=== PATIENT | male | born 1950 | race American Indian/Alaskan Native ===

== ENCOUNTER 2017-11-13 13:11 | Emergency (ER) | payer SELFPAY ==
[2017-11-13 13:52] VITALS: BP 162/87
[2017-11-13] MEDS ORDERED: ZOFRAN ODT PO ONE (16:07)
[2017-11-13] MEDS ORDERED: TORADOL IM ONE (16:07)
[2017-11-13 16:11] LABS: Alanine Aminotransferase 15 units/L (7-56); BUN/Creatinine Ratio 14; Blood Urea Nitrogen 10 mg/dL (9-20); Hemolysis Index 21; Lipase 26 units/L (13-60)
[2017-11-13 16:17] LABS: Hematocrit 46.7 % (35.5-45.6); Hemoglobin 15.6 gm/dl (11.8-15.2); Mean Corpuscular HGB Conc 33 % (32-34); Mean Corpuscular Hemoglobin 30 pg (28-32); Mean Corpuscular Volume 89 fl (84-94); Platelet Count 266 K/mm3 (140-440); Red Blood Count 5.26 M/mm3 (3.65-5.03); Red Cell Distribution Width 16.3 % (13.2-15.2)
--- NOTE | 2017-11-13 16:17 | Emergency Department Report ---
Chief Complaint: Abdominal Pain Stated Complaint: ABDOMINAL PAIN Time Seen by Provider: 11/13/17 15:18 - HPI History of Present Illness: The patient is a 67-year-old male who presents for evaluation of abdominal pain. The patient reports abdominal pain since 9 AM, 10/10 in severity, concentrated to the upper abdomen, sharp in quality, exacerbated with vomiting. The patient denies trauma to the abdomen, fever, chills, night sweats, diarrhea , blood in the stool, dark tarry stool, dysuria, hematuria, flank pain, genital discharge, inability to pass flatus. - Exam Vital Signs: Vital Signs 11/13/17 13:49 Temperature 98.3 F Pulse Rate 68 Respiratory 17 Rate Blood Pressure 162/87 O2 Sat by Pulse 100 Oximetry MSE screening note: Focused history and physical exam performed. Due to findings the following was ordered: ED Medical Decision Making - Lab Data Result diagrams: 11/13/17 15:35 11/13/17 15:35 ED Disposition for MSE Clinical Impression: Abdominal pain, Nausea Disposition: DC-01 TO HOME OR SELFCARE Condition: Stable Instructions: Ondansetron (By mouth), Abdominal Pain (ED) Additional Instructions: Follow-up with a primary care doctor in 3-5 days or if symptoms worsen and continue return to emergency room as soon as possible. Prescriptions: Ibuprofen [Motrin] 600 mg PO Q8H PRN #30 tablet PRN Reason: Pain Ondansetron [Zofran TAB] 4 mg PO Q8HR PRN #20 tablet PRN Reason: Nausea Referrals: [facility] [Outside] - 3-5 Days [facility] [Outside] - 3-5 Days PRIMARY MD ANISHA [Primary Care Provider] - 3-5 Days TRISH ANDERSEN MD [Staff Physician] - 3-5 Days Forms: Work/School Release Form(ED)
--- NOTE | 2017-11-13 16:49 | Emergency Department Report ---
ED Abdominal Pain HPI - General Chief Complaint: Abdominal Pain Stated Complaint: ABDOMINAL PAIN Time Seen by Provider: 11/13/17 15:18 Source: patient, EMS Mode of arrival: Wheelchair Limitations: Physical Limitation - History of Present Illness Initial Comments: This is a 67-year-old male nontoxic, well nourished in appearance, no acute signs of distress presents to the ED with c/o of abdominal pain intermittent x3 months. Patient stated he was seen in [place] and had testing done and CT scans done. Patient denies knowing the results. Patient stated he had an incisional hernia repair done and now has this pain intermittent. Patient also stated has nausea with no vomiting. Patient describes abdominal pain as cramping diffusely and aching with level of 8/10. Patient denies any radiation of pain. Patient denies any vomiting, chest pain, shortness of breathe, fever, chills, headache. back pain, stiff neck, numbness or tingling. Patient denies any allergies. PMH includes GERD and HTN. MD Complaint: abdominal pain -: month(s) (3) Location: diffuse Radiation: none Migration to: no migration Severity: mild Severity scale (0 -10): 8 Quality: cramping, aching Consistency: constant Improves With: nothing Worsens With: nothing Associated Symptoms: nausea. denies: vomiting, diarrhea, fever, chills, constipation, dysuria, hematemesis, hematochezia, melena, hematuria, anorexia, syncope - Related Data Previous Rx's Medication Instructions Recorded Last Taken Type Ibuprofen [Motrin] 600 mg PO Q8H PRN #30 tablet 11/13/17 Unknown Rx Ondansetron [Zofran TAB] 4 mg PO Q8HR PRN #20 tablet 11/13/17 Unknown Rx Allergies Allergy/AdvReac Type Severity Reaction Status Date / Time No Known Allergies Allergy Unverified 11/13/17 13:49 ED Review of Systems ROS: Stated complaint: ABDOMINAL PAIN Other details as noted in HPI Constitutional: denies: chills, fever Eyes: denies: eye pain, eye discharge, vision change ENT: denies: ear pain, throat pain Respiratory: denies: cough, shortness of breath, wheezing Cardiovascular: denies: chest pain, palpitations Endocrine: no symptoms reported Gastrointestinal: abdominal pain, nausea. denies: vomiting, diarrhea Genitourinary: denies: urgency, dysuria Musculoskeletal: denies: back pain, joint swelling, arthralgia Skin: denies: rash, lesions Neurological: denies: headache, weakness, paresthesias Psychiatric: denies: anxiety, depression Hematological/Lymphatic: denies: easy bleeding, easy bruising ED Past Medical Hx - Past Medical History Hx Hypertension: Yes Hx GERD: Yes - Surgical History Additional Surgical History: HERNIA REPAIR - Social History Smoking Status: Never Smoker Substance Use Type: Marijuana - Medications Home Medications: Home Medications Medication Instructions Recorded Confirmed Last Taken Type Ibuprofen [Motrin] 600 mg PO Q8H PRN #30 tablet 11/13/17 Unknown Rx Ondansetron [Zofran TAB] 4 mg PO Q8HR PRN #20 tablet 11/13/17 Unknown Rx ED Physical Exam - General Limitations: Physical Limitation General appearance: alert, in no apparent distress - Head Head exam: Present: atraumatic, normocephalic - Eye Eye exam: Present: normal appearance Pupils: Present: normal accommodation - ENT ENT exam: Present: normal exam, mucous membranes moist - Neck Neck exam: Present: normal inspection, full ROM. Absent: tenderness, meningismus - Respiratory Respiratory exam: Present: normal lung sounds bilaterally. Absent: respiratory distress, wheezes, rales, rhonchi, stridor, chest wall tenderness, accessory muscle use, decreased breath sounds, prolonged expiratory - Cardiovascular Cardiovascular Exam: Present: regular rate, normal rhythm, normal heart sounds. Absent: bradycardia, tachycardia, irregular rhythm, systolic murmur, diastolic murmur, rubs, gallop - GI/Abdominal GI/Abdominal exam: Present: soft, tenderness (diffuse), normal bowel sounds. Absent: distended, guarding, rebound, rigid, diminished bowel sounds - Expanded GI/Abdominal Exam Expanded GI/Abdominal exam: Absent: psoas sign, obturator sign, heel tap sign, Nice's sign, Rovsing's sign, tenderness at Mcburney's Point, ascites - Rectal Rectal exam: Present: deferred - Extremities Exam Extremities exam: Present: normal inspection, full ROM, normal capillary refill - Back Exam Back exam: Present: normal inspection, full ROM. Absent: tenderness, CVA tenderness (R), CVA tenderness (L), paraspinal tenderness, vertebral tenderness , rash noted - Neurological Exam Neurological exam: Present: alert, oriented X3, normal gait - Psychiatric Psychiatric exam: Present: normal affect, normal mood - Skin Skin exam: Present: warm, dry, intact, normal color. Absent: rash ED Course Vital Signs 11/13/17 13:49 Temperature 98.3 F Pulse Rate 68 Respiratory 17 Rate Blood Pressure 162/87 O2 Sat by Pulse 100 Oximetry - Reevaluation(s) Reevaluation #1: 11/13/17 16:59 Patient is speaking in full sentences with no signs of distress noted. - Consultations Consultation #1: 11/13/17 16:59 Patient has been consulted with Dr. Sheriff about patient history, physical exam, and labs/CT and examined and screened patient and agrees to ED plan of care. ED Medical Decision Making - Lab Data Result diagrams: 11/13/17 15:35 11/13/17 15:35 - Medical Decision Making This is a 67-year-old male that presents with abdominal pain. Patient is stable and was examined by me and Dr. Sheriff. CT of abdomen with contrast obtained and dictated by the radiologist. Patient is notified of the CT report with no questions noted by the patient. Labs obtained. UA obtained. PAtient received 1L of normal saline, 8 mg of Zofran and Toradol and stated symptoms are resolving and subsiding. A po challenge has been obtained and patient tolerated well with no nausea or vomiting. Patient is discharged with Motrin and Zofran. Patient was instructed to Follow-up with a primary care doctor in 3-5 days or if symptoms worsen and continue return to emergency room as soon as possible. At time of discharge, the patient does not seem toxic or ill in appearance. No acute signs of distress noted. Patient agrees to discharge treatment plan of care. No further questions noted by the patient. Critical care attestation.: If time is entered above; I have spent that time in minutes in the direct care of this critically ill patient, excluding procedure time. ED Disposition Clinical Impression: Nausea Abdominal pain Qualifiers: Abdominal location: generalized Qualified Code(s): R10.84 - Generalized abdominal pain Disposition: DC-01 TO HOME OR SELFCARE Is pt being admited?: No Does the pt Need Aspirin: No Condition: Stable Instructions: Ondansetron (By mouth), Abdominal Pain (ED) Additional Instructions: Follow-up with a primary care doctor in 3-5 days or if symptoms worsen and continue return to emergency room as soon as possible. Prescriptions: Ibuprofen [Motrin] 600 mg PO Q8H PRN #30 tablet PRN Reason: Pain Ondansetron [Zofran TAB] 4 mg PO Q8HR PRN #20 tablet PRN Reason: Nausea Referrals: PRIMARY CARE, [Primary Care Provider] - 3-5 Days TRISH ANDERSEN MD [Staff Physician] - 3-5 Days [facility] [Outside] - 3-5 Days [facility] [Outside] - 3-5 Days Forms: Work/School Release Form(ED)
[2017-11-13] MEDS ORDERED: ZOFRAN IV ONE (16:58)
[2017-11-13] MEDS ORDERED: NACL 0.9% 1000 ML 1,000 ML IV ONE (16:58)
[2017-11-13 17:01] LABS: Basophils % (Manual) 0 % (0.0-1.8); Eosinophils % (Manual) 0 % (0.0-4.3); Platelet Estimate Consistent w Auto; RBC Morphology Normal; Total Cells Counted 100
[2017-11-13 17:17] LABS: Bilirubin,Urine NEG (Negative); Blood,Urine NEG (Negative); Color,Urine Yellow (Yellow); Mucus,Urine 3+ /HPF; Urobilinogen,Urine < 2.0 mg/dL (<2.0); WBC,Urine < 1.0 /HPF (0.0-6.0)
--- NOTE | 2017-11-13 19:35 | Cat Scan Report ---
FINAL REPORT PROCEDURE: CT ABDOMEN PELVIS W CON TECHNIQUE: Computerized axial tomography of the abdomen and pelvis was performed after the IV injection of iodinated nonionic contrast. HISTORY: abd pain COMPARISON: No prior studies are available for comparison. FINDINGS: Visualized lower thorax: No significant abnormality. Liver: Normal size and attenuation. Spleen: Normal size and attenuation. Gallbladder and biliary system: Normal. Pancreas: Normal. Adrenals: 9 millimeter left adrenal low-density nodule. Kidneys: Nonobstructing 2 millimeter calculus in the left kidney upper pole. Bilateral small subcentimeter renal cysts are present GI tract: Appendix is visualized and does not appear inflamed. No bowel obstruction or acute inflammation is seen. Small gastric hiatal hernia. Lymph nodes and mesentery: Normal. Vasculature: Normal. Bladder: There is diffuse urinary bladder wall thickening. Reproductive organs: Prostate calcifications. Peritoneum: No free fluid. Musculoskeletal structures: Degenerative disc changes of the lumbar spine. Other: None. IMPRESSION: Diffuse urinary bladder wall thickening. Correlate clinically to exclude cystitis. This can also be seen with chronic bladder outlet obstruction. Nonobstructing small left renal calculus
== END 2017-11-13 19:50 | disposition home or self-care (01) ==
LOC: ED 13:11
DX: R10.84 Generalized abdominal pain (principal); R11.0 Nausea
CPT/HCPCS: 36415; 74177; 80053; 81001; 83690; 85007; 85025; 96361; 96372; 96374; 99284; J1885; J2405; J7030; Q9967; Q0162

== ENCOUNTER 2019-08-02 04:33 | Emergency (ER) | payer MEDICARE ==
[2019-08-02 04:43] VITALS: BP 161/85
[2019-08-02] MEDS ORDERED: ONDANSETRON 4 MG/2 ML INJ IV ONE ×2 (08:45→09:57)
[2019-08-02] MEDS ORDERED: SODIUM CHLORIDE 0.9% 1000 ML 1,000 ML IV ONE (08:45)
--- NOTE | 2019-08-02 08:57 | Emergency Department Report ---
ED Abdominal Pain HPI - General Chief Complaint: Back Pain/Injury Stated Complaint: ABD/BACK PAIN Time Seen by Provider: 08/02/19 08:33 Source: patient Mode of arrival: Ambulatory Limitations: No Limitations - History of Present Illness Initial Comments: This is a 69-year-old male he states that 3 days ago his developed abdominal pain. The pain has now settled in his left flank. Pain is associated with nausea and vomiting. Patient is actively vomiting yellow undigested material. He last ate dinner time yesterday. Last BM yesterday morning. - Related Data Previous Rx's Medication Instructions Recorded Last Taken Type Ibuprofen [Motrin] 600 mg PO Q8H PRN #30 tablet 11/13/17 Unknown Rx Ondansetron [Zofran TAB] 4 mg PO Q8HR PRN #20 tablet 11/13/17 Unknown Rx Ondansetron [Zofran Odt] 4 mg PO Q8HR #12 tab.rapdis 08/02/19 Unknown Rx traMADoL [Ultram] 50 mg PO Q6HR PRN #12 tablet 08/02/19 Unknown Rx Allergies Allergy/AdvReac Type Severity Reaction Status Date / Time No Known Allergies Allergy Unverified 11/13/17 13:49 ED Review of Systems ROS: Stated complaint: ABD/BACK PAIN Other details as noted in HPI ED Past Medical Hx - Past Medical History Previous Medical History?: Yes Hx Hypertension: Yes Hx GERD: Yes Additional medical history: Back pain - Surgical History Past Surgical History?: Yes Additional Surgical History: HERNIA REPAIR - Social History Smoking Status: Former Smoker Substance Use Type: Alcohol, Marijuana - Medications Home Medications: Home Medications Medication Instructions Recorded Confirmed Last Taken Type Ibuprofen [Motrin] 600 mg PO Q8H PRN #30 tablet 11/13/17 Unknown Rx Ondansetron [Zofran TAB] 4 mg PO Q8HR PRN #20 tablet 11/13/17 Unknown Rx Ondansetron [Zofran Odt] 4 mg PO Q8HR #12 tab.rapdis 08/02/19 Unknown Rx traMADoL [Ultram] 50 mg PO Q6HR PRN #12 tablet 08/02/19 Unknown Rx ED Physical Exam - General Limitations: No Limitations ED Course Vital Signs 08/02/19 08/02/19 04:41 11:18 Temperature 98.3 F Pulse Rate 69 Respiratory 20 18 Rate Blood Pressure 161/85 O2 Sat by Pulse 96 Oximetry - Reevaluation(s) Reevaluation #1: 08/02/19 11:09 At bedside patient in no distress does report left flank pain this not increased but is not on he's had no further vomiting. Plan to give Toradol 15 mg IV for the pain all findings discussed with patient. ED Medical Decision Making - Lab Data Result diagrams: 08/02/19 09:24 08/02/19 09:24 - Radiology Data Radiology results: report reviewed CT ABD/PELVIS GI TRACT: There is a small hiatal hernia without associated inflammation. Thickening of the distal esophagus may represent esophagitis. No additional significant abnormality of the stomach. No significant abnormality of the small bowel or colon. Unremarkable appendix. PERITONEUM: No free fluid. No free air. No fluid collection. LYMPH NODES: No significant adenopathy. VASCULATURE: The aorta is normal in caliber with mild generalized atherosclerosis. URINARY BLADDER: No significant abnormality. REPRODUCTIVE ORGANS: No significant abnormality. A 5 mm nonobstructive left upper renal pole stone is noted. ADDITIONAL FINDINGS: None. SKELETAL SYSTEM: Degenerative changes are noted along the spine and SI joints without an acute abnormality. IMPRESSION: 1. No acute abnormality of the abdomen or pelvis. 2. Probable bilateral renal cysts. A non-emergent renal ultrasound is suggested for further evaluation. - Medical Decision Making 69-year-old male with left flank pain and no vomiting. CBC CMP and lipase urinalysis and CT of the abdomen and pelvis without contrast done. CBC no abnormal findings CMP no acute findings lipase slightly elevated at 74. Urinalysis negative for urinary tract infection. CT of his abdomen shows a 5 mm left renal pole stone and also renal cyst that needs to be follow-up with a renal ultrasound non-emergently. All these findings were discussed and reviewed with patient. Patient also given written information regarding these findings and that he will need to follow-up with his primary care doctor and for possibly data processing systems consultant. Critical care attestation.: If time is entered above; I have spent that time in minutes in the direct care of this critically ill patient, excluding procedure time. ED Disposition Clinical Impression: Kidney stone on left side, Renal cyst, Hiatal hernia Disposition: - TO HOME OR SELFCARE Is pt being admited?: No Does the pt Need Aspirin: No Condition: Stable Instructions: Kidney Stones (ED) Additional Instructions: Continue to drink plenty fluids. Follow up with your doctor or [facility] and Dr. Hudson (Law Writer) as soon as possible. Return to ER for increasing pain if you develop fever or unable to urinate. Prescriptions: traMADoL [Ultram] 50 mg PO Q6HR PRN #12 tablet PRN Reason: Pain Ondansetron [Zofran Odt] 4 mg PO Q8HR #12 tab.rapdis Referrals: PRIMARY CARE, [Primary Care Provider] - 3-5 Days REBECCA HUDSON MD [Staff Physician] - 3-5 Days Time of Disposition: 12:25
[2019-08-02 09:39] LABS: Amorphous Crystals,Urine Few; Bilirubin,Urine NEG (Negative); Blood,Urine NEG (Negative); Color,Urine Yellow (Yellow); Protein,Urine <15 mg/dL mg/dL (Negative); Urobilinogen,Urine < 2.0 mg/dL (<2.0); WBC,Urine < 1.0 /HPF (0.0-6.0)
--- NOTE | 2019-08-02 09:41 | Cat Scan Report ---
CT ABDOMEN AND PELVIS WITHOUT CONTRAST INDICATION: abdominal pain/right flank pain. COMPARISON: CT abdomen and pelvis with contrast from 11/13/2017. TECHNIQUE: Axial, coronal and sagittal CT imaging of the abdomen and pelvis was performed without co ntrast. Lack of intravenous contrast limits evaluation of the vascular and solid organs. All CT sca ns at this location are performed using CT dose reduction for ALARA by means of automated exposure co ntrol. FINDINGS: LOWER CHEST: No significant abnormality. LIVER: No significant abnormality. BILIARY: No significant abnormality. PANCREAS: No significant abnormality. SPLEEN: No significant abnormality. ADRENALS: Bilateral adrenal hyperplasia is noted. There is a similar left adrenal nodule measuring 1. 4 x 1.3 cm that likely represents an adenoma. KIDNEYS AND URETERS: Subcentimeter right renal cortical hypodensities are still too small to complete ly evaluate, but may represent cysts. No additional significant abnormality of the right kidney or ur eter. There is a probable mid pole left renal cyst measuring 1.4 cm. A 5 mm nonobstructive left upper renal pole stone is noted. No additional significant abnormality of the left kidney or ureter. GI TRACT: There is a small hiatal hernia without associated inflammation. Thickening of the distal es ophagus may represent esophagitis. No additional significant abnormality of the stomach. No significa nt abnormality of the small bowel or colon. Unremarkable appendix. PERITONEUM: No free fluid. No free air. No fluid collection. LYMPH NODES: No significant adenopathy. VASCULATURE: The aorta is normal in caliber with mild generalized atherosclerosis. URINARY BLADDER: No significant abnormality. REPRODUCTIVE ORGANS: No significant abnormality. ADDITIONAL FINDINGS: None. SKELETAL SYSTEM: Degenerative changes are noted along the spine and SI joints without an acute abnorm ality. IMPRESSION: 1. No acute abnormality of the abdomen or pelvis. 2. Probable bilateral renal cysts. A nonemergent renal ultrasound is suggested for further evaluation . 3. Additional findings as above. Signer Name: Neftali Tijerina MD Signed: 08/02/2019 9:37 AM Workstation Name: [email or web address]
[2019-08-02 09:50] LABS: Hematocrit 42.1 % (35.5-45.6); Hemoglobin 14.1 gm/dl (11.8-15.2); Mean Corpuscular HGB Conc 34 % (32-34); Mean Corpuscular Volume 90 fl (84-94); Platelet Count 273 K/mm3 (140-440); Red Blood Count 4.66 M/mm3 (3.65-5.03); Red Cell Distribution Width 14.8 % (13.2-15.2)
[2019-08-02 10:27] LABS: Alanine Aminotransferase 21 units/L (7-56); Albumin 4.5 g/dL (3.9-5); BUN/Creatinine Ratio 14; Blood Urea Nitrogen 10 mg/dL (9-20); Calcium 9.4 mg/dL (8.4-10.2); Hemolysis Index 62
[2019-08-02] MEDS ORDERED: KETOROLAC 30 MG/1 ML INJ IV ONE (11:08)
== END 2019-08-02 13:12 | disposition home or self-care (01) ==
LOC: ED 04:33
DX: N20.0 Calculus of kidney (principal); N28.1 Cyst of kidney, acquired; R11.2 Nausea with vomiting, unspecified; K44.9 Diaphragmatic hernia without obstruction or gangrene; I10 Essential (primary) hypertension; K21.9 Gastro-esophageal reflux disease without esophagitis; Z87.891 Personal history of nicotine dependence; F12.10 Cannabis abuse, uncomplicated; Z79.1 Long term (current) use of non-steroidal anti-inflammatories (NSAID); Z79.899 Other long term (current) drug therapy
CPT/HCPCS: 36415; 74176; 80053; 81001; 83690; 85027; 96361; 96374; 96375; 96376; 99284; J1885; J2405; J7030